=== PATIENT | male | born 1965 | race Hispanic/Latino ===

== ENCOUNTER 2020-10-24 09:28 | Emergency (ER) | payer SELFPAY | END 2020-10-24 19:21 | LOC: EDBD 09:28 → ERS 09:28 | DX: F32.9 Major depressive disorder, single episode, unspecified (principal); F41.9 Anxiety disorder, unspecified; F10.10 Alcohol abuse, uncomplicated; Z20.822 Contact with and (suspected) exposure to COVID-19 | CPT/HCPCS: 36415; 80053; 80306; 80307; 81003; 84443; 85025; 99285; U0002; U0005 ==